=== PATIENT | female | born 1960 | race Caucasian/White ===

== ENCOUNTER 2023-12-08 12:17 | Emergency (ER) | payer BC ==
[~2023-12-08] VITALS: Ht 167.6 cm; Wt 83.9 kg
[~2023-12-08 12:17] MED LIST: NEXIUM40 MG PO; [UNRECOGNIZED DRUG - OTHER]; paroxetine
[2023-12-08 14:32] VITALS: TEMP 97.6
[2023-12-08 14:55] LABS: BASOPHILS % 0.5 % (0.0-1.0); EOSINOPHILS # (AUTO) 0.1 (0.0-0.4); EOSINOPHILS % 0.8 % (0.0-6.0); HEMATOCRIT 40.2 % (34.2-44.1); HEMOGLOBIN 13.1 g/dL (12.0-16.0); LYMPHOCYTES # (AUTO) 1.1 (1.0-3.2); LYMPHOCYTES % 12.6 % (18.0-39.1); MEAN CORPUSCULAR HEMOGLOBIN 28.7 pg (28-32); MEAN CORPUSCULAR HGB CONC 32.6 g/dL (31-35); MONOCYTES # (AUTO) 0.9 (0.2-0.8); MONOCYTES % 10.2 % (4.4-11.3); NEUTROPHILS # (AUTO) 6.4 (2.1-6.9); NEUTROPHILS % 75.7 % (38.7-80.0); PLATELET COUNT 145 x10e3/uL (140-360); RED BLOOD COUNT 4.57 x10e6/uL (3.6-5.1); RED CELL DISTRIBUTION WIDTH 14.8 % (11.7-14.4); WHITE BLOOD COUNT 8.42 x10e3/uL (4.8-10.8)
[2023-12-08 15:13] LABS: ALBUMIN 2.9 g/dL (3.5-5.0); ALBUMIN/GLOBULIN RATIO 0.6 (0.8-2.0); ANION GAP 14.4 mmol/L (8-16); BILIRUBIN,TOTAL 0.7 mg/dL (0.2-1.2); CALCIUM 8.7 mg/dL (8.4-10.2); CREATININE, SERUM 1.33 mg/dL (0.57-1.11); POTASSIUM 4.4 mmol/L (3.5-5.1); TOTAL PROTEIN 7.6 g/dL (6.5-8.1)
[2023-12-08 15:21] LABS: TROPONIN I 0.007 ng/mL (0-0.300)
[2023-12-08] MEDS ORDERED: IOPAMIDOL 370 MG/ML 100 ML INFUS..BTL INJ ONE (15:57)
[2023-12-08 17:09] LABS: CLARITY,URINE HAZY (CLEAR); COLOR,URINE AMBER (YELLOW); GLUCOSE, URINE NEGATIVE (NEGATIVE); KETONES,URINE NEGATIVE (NEGATIVE); LEUKOCYTE ESTERASE ,URINE NEGATIVE (NEGATIVE); NITRITE,URINE NEGATIVE (NEGATIVE); PH,URINE 5.5 (5 - 7); PROTEIN,URINE DIPSTICK >=300 (NEGATIVE); URINE UROBILINOGEN 0.2 mg/dL (0.2 - 1)
[2023-12-08 17:10] LABS: BILIRUBIN,URINE NEGATIVE (NEGATIVE)
[2023-12-08 17:15] LABS: BACTERIA,URINE MODERATE /HPF; EPITHELIAL CELLS,URINE MANY /LPF; RBC,URINE >50 /HPF (0-5); WBC,URINE (MAN) 0-5 /HPF (0-5)
[2023-12-08 20:20] VITALS: PULSE 87; RESP 16; O2SAT 98
== END 2023-12-08 20:21 | disposition home or self-care (01) ==
LOC: ER 15:14
DX: R10.30 Lower abdominal pain, unspecified (principal); K74.60 Unspecified cirrhosis of liver; K80.20 Calculus of gallbladder without cholecystitis without obstruction; R11.2 Nausea with vomiting, unspecified; I10 Essential (primary) hypertension
CPT/HCPCS: 36415; 71045; 74176; 80053; 81001; 82550; 84484; 85025; 99284; Q9967

== ENCOUNTER → 2024-12-13 | Day surgery (SDC) | payer MEDICARE, BC ==
[2024-12-05 13:07] LABS: BASOPHILS % 0.9 % (0.0-1.0); EOSINOPHILS % 1.1 % (0.0-6.0); LYMPHOCYTES % 26.8 % (18.0-39.1); MONOCYTES % 10.0 % (4.4-11.3); NEUTROPHILS % 60.9 % (38.7-80.0); RED CELL DISTRIBUTION WIDTH 14.5 % (11.7-14.4)
[2024-12-05 13:27] LABS: INR 1.0
[2024-12-05 13:36] LABS: EST GLOMERULAR FILTRATION RATE 36.0 ML/MIN (>=60)
[~2024-12-13] MED LIST changes: +CALCIUM GUMMIE1 EACH; +COLLAGEN 15001 EACH; +FENTANYL CITRATE/PF 100MCG/2 ML INJ ONE; +LASIX20 MG PO; +LIDOCAINE HCL 2% LOCAL INJ 5 ML SDV VIAL INJ ONE; +LOSARTAN POTAS100 MG PO; +MYRBETRIQ50 MG; +PANTOPRAZOLE SO40 MG PO; +PROPOFOL IV EMULSION 10 MG/ML 20 ML VIAL ONE; +SPIRONOLACTONE25 MG PO; +URSODIOL300 MG PO; +ZINC PO
[2024-12-13] MEDS: LACTATED RINGER'S 1,000 ML ONE (08:26)
[2024-12-13 11:09] VITALS: TEMP 97.5
[2024-12-13 11:40] VITALS: BP 147/91; PULSE 71; RESP 18; O2SAT 100
== END | disposition home or self-care (01) ==
LOC: OR 07:29
PROVIDERS: ATTEND Internal Medicine Gastroenterology
DX: K70.30 Alcoholic cirrhosis of liver without ascites (principal); I85.10 Secondary esophageal varices without bleeding; K29.30 Chronic superficial gastritis without bleeding; K21.9 Gastro-esophageal reflux disease without esophagitis; I12.9 Hypertensive chronic kidney disease with stage 1 through stage 4 chronic kidney disease, or unspecified chronic kidney disease; N18.32 Chronic kidney disease, stage 3b; Z88.8 Allergy status to other drugs, medicaments and biological substances; Z01.812 Encounter for preprocedural laboratory examination; Z79.899 Other long term (current) drug therapy; Z68.27 Body mass index [BMI] 27.0-27.9, adult
CPT/HCPCS: 36415; 43244; 80053; 85025; 85610; 85730; J2003; J2704; J3010; J7121; 43235; 43255

== ENCOUNTER → 2025-01-10 | Day surgery (SDC) | payer BC ==
[2025-01-05 12:07] LABS: BASOPHILS % 0.5 % (0.0-1.0); EOSINOPHILS % 2.0 % (0.0-6.0); LYMPHOCYTES % 27.4 % (18.0-39.1); MONOCYTES % 8.7 % (4.4-11.3); NEUTROPHILS % 61.2 % (38.7-80.0); RED CELL DISTRIBUTION WIDTH 14.0 % (11.7-14.4)
[2025-01-05 12:33] LABS: EST GLOMERULAR FILTRATION RATE 34.0 ML/MIN (>=60)
[2025-01-05 12:42] LABS: INR 1.05
[~2025-01-10] MED LIST changes: -CALCIUM GUMMIE1 EACH; +CALCIUM GUMMIE1 EACH PO; +CARVEDILOL3.125 MG PO; -COLLAGEN 15001 EACH; +COLLAGEN 15001 EACH PO; +ENULOSE10 GM/15 M PO; -FENTANYL CITRATE/PF 100MCG/2 ML INJ ONE
[2025-01-10] MEDS: LACTATED RINGER'S 1,000 ML ONE (07:54)
[2025-01-10 10:02] VITALS: TEMP 97.4
[2025-01-10 10:15] VITALS: BP 148/91; PULSE 78; RESP 16; O2SAT 96
== END | disposition home or self-care (01) ==
LOC: OR 06:45
PROVIDERS: ATTEND Internal Medicine Gastroenterology
DX: K70.30 Alcoholic cirrhosis of liver without ascites (principal); I85.10 Secondary esophageal varices without bleeding; B18.2 Chronic viral hepatitis C; K29.50 Unspecified chronic gastritis without bleeding; K76.6 Portal hypertension; I12.9 Hypertensive chronic kidney disease with stage 1 through stage 4 chronic kidney disease, or unspecified chronic kidney disease; N18.30 Chronic kidney disease, stage 3 unspecified; I25.2 Old myocardial infarction; K21.9 Gastro-esophageal reflux disease without esophagitis; M19.91 Primary osteoarthritis, unspecified site; Z01.810 Encounter for preprocedural cardiovascular examination; Z01.812 Encounter for preprocedural laboratory examination; Z79.899 Other long term (current) drug therapy
CPT/HCPCS: 36415; 43244; 80053; 85025; 85610; 85730; 93005; J2003; J2704; J7121; 43239; 43255